=== PATIENT | female | born 1985 | race Caucasian/White ===

== ENCOUNTER 2025-04-18 00:25 | Emergency (ER) | payer BC, OTHER, SELFPAY ==
--- NOTE | ~2025-04-18 | CT_ITS ---
CT ABDOMEN AND PELVIS WITHOUT CONTRAST Clinical History: flank pain Comparison: None Technique: Unenhanced axial images lung bases to symphysis pubis Coronal, sagittal reformats CT images acquired with automatic exposure control for dose reduction DLP: 724 mGy-cm Findings: Without intravenous contrast, sensitivity for detecting visceral parenchymal abnormalities decreased. Lung bases: Clear. Visualized heart and pericardium: Unremarkable. Liver: Unremarkable. Gallbladder: Removed. Spleen: Unremarkable. Pancreas: Unremarkable. Adrenal glands: Unremarkable. Kidneys: Right kidney- hydronephrosis. A few stones, largest 8 mm. 8 mm stone proximal ureter. Left kidney- No hydronephrosis. A few stones, largest 5 mm. Distal esophagus/stomach: Unremarkable. Small bowel loops: Normal caliber and wall thickness. Colon: Normal caliber and wall thickness. Normal RLQ appendix. Nodes: No enlarged nodes. Peritoneum: No ascites. No free intraperitoneal air. Urinary bladder: Unremarkable. Uterus: Unremarkable. Adnexa: No masses. Bones: No acute bony abnormality. Soft tissues: Small umbilical hernia with fat. Unopacified abdominal aorta: No aneurysmal dilatation. IMPRESSION: 1. Right kidney hydronephrosis from 7 mm stone proximal ureter. 2. Bilateral nephrolithiasis. Reviewed, dictated and finalized at location R. [employer]
[2025-04-18 01:14] VITALS: BP 183/119; PULSE 67; RESP 19; TEMP 36.5; O2SAT 97
[2025-04-18 01:23] LABS: Hematocrit 43.4 % (37.0-47.0); Hemoglobin 14.9 g/dL (12.0-15.0); Immature Granulocyte Percent A 0.5 % (0-0.5); Lymphocytes Absolute Auto 1.31 K/mm3 (0.9-3.2); Mean Corpuscular HGB Conc 34.3 g/dl (32-36); Mean Corpuscular Hemoglobin 30.6 pg (26-34); Mean Corpuscular Volume 89.1 fl (80-100); Nucleated Red Blood Cells Absolute Auto 0.000 K/mm3 (0.0-0.012); Nucleated Red Blood Cells Perc 0.0 % (0.0-0.2); Platelet Count Result 303 k/mm3 (150-375); Red Blood Count 4.87 M/mm3 (4.2-5.4); White Blood Count 13.2 K/mm3 (4.5-10.0)
[2025-04-18 01:35] LABS: Alanine Aminotransferase 64 U/L (6-35); Albumin Level 4.4 g/dL (3.5-5.1); Alkaline Phosphatase 114 U/L (38-126); Anion Gap 7 mmol/L (4-12); Aspartate Amino Transferase 43 U/L (14-36); Bilirubin,Total 0.7 mg/dL (0.2-1.3); Blood Urea Nitrogen 18 mg/dL (7-17); Calcium 9.4 mg/dL (8.4-10.2); Carbon Dioxide 24 mmol/L (22-30); Chloride 105 mmol/L (98-107); Estimated CRCL calculation 76 ml/min; Estimated Glomerular Filt Rate > 60; Glucose 161 mg/dL (65-110); Lipase 46 U/L (23-300); Potassium 3.7 mmol/L (3.4-5.0); Sodium 136 mmol/L (137-145); Total Protein 7.6 g/dL (6.3-8.2)
[2025-04-18 01:51] LABS: Non Pathogenic Casts 0-2
[2025-04-18 02:44] LABS: Add Urine Microscopic? YES; Appearance Urine Cloudy (Clear); Glucose Urine UA Negative (Negative); Leukocyte Esterase Ur Trace LEU/UL (Negative); Nitrate Urine Negative (Negative); Specific Grav Ur 1.018 (1.001-1.035)
[2025-04-18 03:26] VITALS: BP 166/110; PULSE 65; PULSE 71; RESP 18; RESP 20; TEMP 36.8; O2SAT 96; O2SAT 98
--- NOTE | 2025-04-18 03:31 | PC.NURSE ---
ERP notified of patients pain and vomiting.
--- NOTE | 2025-04-18 03:43 | ED.GENADULT ---
HPI - General Adult General Chief complaint: Abdominal Pain Stated complaint: N/V and flank pain Time Seen by Provider: 04/18/25 03:32 Source: patient and family Mode of arrival: ambulatory Limitations: no limitations History of Present Illness HPI narrative: Patient is a 40-year-old female presents to the emergency department complaining of right flank pain, started last night around 7:00 p.m., constant, radiates around toward her groin, feels or history of kidney stones, started having nausea vomiting around 9:00 p.m., pain is constant. Related Data Allergies Allergy/AdvReac Type Severity Reaction Status Date / Time promethazine (From Phenergan) AdvReac Mild Shakiness Verified 04/18/25 03:29 Review of Systems Review of Systems: A 10 system review of systems was completed on the patient and is negative except for what is stated in the HPI. Nursing and ancillary documentation was reviewed. Exam Narrative: CONST: Moderate acute distress HENMT: Head is normocephalic and atraumatic. Moist mucous membranes. No posterior oropharynx erythema. EYES: No scleral icterus. No conjunctival injection or pallor. PERRL. NECK: No meningeal signs. RESP: Able to speak in full sentences. Normal respiratory effort. CTAB. CARDIO: Regular rate. Regular rhythm. 2+ DP and radial pulses bilaterally. GI: Nondistended. No tenderness to palpation. Soft. : Right CVA tenderness to palpation. SKIN: No rashes or lesions noted on exposed skin. NEURO: Oriented x3. Moves all extremities. EXTREM/MSK/BACK: No pedal edema. PSYCH: Normal affect. Course Vital Signs Vital signs: Vital Signs Temperature 97.7 F 04/18/25 01:14 Pulse Rate 67 04/18/25 01:14 Respiratory Rate 19 04/18/25 01:14 Blood Pressure 183/119 H 04/18/25 01:14 Pulse Oximetry 97 04/18/25 01:14 Temperature 98.2 F 04/18/25 03:26 Pulse Rate 61 04/18/25 06:36 Respiratory Rate 18 04/18/25 06:36 Blood Pressure 137/96 H 04/18/25 06:36 Pulse Oximetry 98 04/18/25 06:36 Oxygen Delivery Room Air 04/18/25 03:26 [facility] Narrative Medical decision making narrative: Patient presents with the above complaint. Initial vitals are remarkable for elevated blood pressure. Physical examination as noted above. Plan discussed: laboratory analysis, imaging. Patient ordered IVF, analgesia, antiemetic, continuous cardiac monitoring, continuous pulse oximetry. CT of the abdomen pelvis preliminary report radiology impression is 7 mm stone within the proximal right ureter. Moderate right-sided hydronephrosis and proximal hydroureter. No renal mass. No left renal obstruction or urolithiasis. Patient requested that I specifically talked with her Urology team at [facility] in [place]. I spoke with Urology from [facility] Dr. Mayes who notes to have the patient call the clinic on Saturday for a follow-up appointment, Flomax, pain medications, nausea medications, return precautions. Patient was reassessed at the bedside. Patient is in no acute distress. Patient is tolerating oral intake, pain is well controlled. Patient ordered Flomax. Patient for a discussion of her urologist and is satisfied with the plan of care at this time. The patient has remained stable throughout the entire ED visit. Counseled patient regarding diagnostic results and potential diagnosis. Anticipatory guidance provided. Patient instructed to follow up with Urology on Saturday. Patient counseled on: false reassurance from an emergency department evaluation; no current evidence of a medical emergency; return immediately for any new, recurrent, worsening, concerning, or refractory symptoms. Patient prescribed [place], Motrin, Zofran, Flomax. Prescription sent to preferred pharmacy. Medications discussed with patient. Additional verbal and printed discharge instructions were given and discussed with the patient. Patient verbally acknowledges understanding of condition and discharge instructions. All questions were answered to the patient's satisfaction. Patient is in agreement with the plan of care. The patient is stable for discharge and was discharged without incident. Differential Diagnosis Differential Diagnosis: Ureterolithiasis, UTI, metabolic derangement, electrolyte derangement, pancreatitis. Lab Data MDM Lab Attestation statement: I personally reviewed the patient's lab results. Lab results narrative: CBC reveals a white blood cell count of 13.2. Comprehensive metabolic panel reveals a sodium 136, BUN of 18, glucose 161, AST of 43, ALT of 64. Lipase is 46. Urinalysis has a cloudy appearance with 2+ protein, 1+ ketones, 3+ blood, trace leukocyte esterase, greater than 100 RBCs, no bacteria seen. test is negative. 04/18/25 01:18 04/18/25 01:18 Labs: Lab Results 04/18/25 04/18/25 Range/Units 01:18 01:35 WBC 13.2 H (4.5-10.0) K/mm3 RBC 4.87 (4.2-5.4) M/mm3 Hgb 14.9 (12.0-15.0) g/dL Hct 43.4 (37.0-47.0) % MCV 89.1 (80-100) fl MCH 30.6 (26-34) pg MCHC 34.3 (32-36) g/dl RDW 12.9 (11.5-14.5) % Plt Count 303 (150-375) k/mm3 MPV 9.1 (7.4-10.4) fl Immature Gran % (Auto) 0.5 (0-0.5) % Neut % (Auto) 85.2 H (45.5-73.1) % Lymph % (Auto) 9.9 L (18.3-44.2) % [place] % (Auto) 3.7 (2.6-8.5) % Eos % (Auto) 0.2 (0-4.4) % Baso % (Auto) 0.5 (0.2-1.2) % Lymph # (Auto) 1.31 (0.9-3.2) K/mm3 [place] # (Auto) 0.5 (0.1-0.6) K/mm3 Eos # (Auto) 0.0 (0-0.3) K/mm3 Baso # (Auto) 0.1 (0.0-0.1) K/mm3 Abs Immat Gran (auto) 0.06 H (0.00-0.031) K/mm3 Absolute Neuts (auto) 11.3 H (1.3-6.7) K/mm3 Absolute Nucleated RBC 0.000 (0.0-0.012) K/mm3 Nucleated RBC % 0.0 (0.0-0.2) % Sodium 136 L (137-145) mmol/L Potassium 3.7 (3.4-5.0) mmol/L Chloride 105 (98-107) mmol/L Carbon Dioxide 24 (22-30) mmol/L Anion Gap 7 (4-12) mmol/L BUN 18 H (7-17) mg/dL Creatinine 0.98 (0.7-1.0) mg/dL Estim Creat Clear Calc 76 ml/min Estimated GFR > 60 (59 - ) Glucose 161 H (65-110) mg/dL Calcium 9.4 (8.4-10.2) mg/dL Total Bilirubin 0.7 (0.2-1.3) mg/dL AST 43 H (14-36) U/L ALT 64 H (6-35) U/L Alkaline Phosphatase 114 (38-126) U/L Total Protein 7.6 (6.3-8.2) g/dL Albumin 4.4 (3.5-5.1) g/dL Lipase 46 (23-300) U/L Urine Color Dark yellow (Yellow) Urine Appearance Cloudy H (Clear) Urine pH 7.0 (5.0-9.0) Ur Specific [place] 1.018 (1.001-1.035) Urine Protein 2+ H (Negative) mg/dL Urine Glucose (UA) Negative (Negative) mg/dL Urine Ketones 1+ H (Negative) mg/dL Ur Blood (Man) 3+ H (Negative) Urine Nitrate Negative (Negative) Urine Bilirubin Negative (Negative) Urine Urobilinogen 0.2 (<2.0) mg/dL Leukocyte Esterase Rfl Trace H (Negative) FREDDY/UL Urine RBC >100 H (0-2) /hpf Urine WBC 0-5 (0-3) /hpf Ur Squamous Epith Cells None seen (Few) /hpf Urine Bacteria None seen /hpf Urine Casts 0-2 Urine Test Negative Discharge Plan Discharge Clinical Impression: Ureterolithiasis Patient Disposition: Home Condition: Stable Instructions: Antibiotic Form, How to Strain Your Urine (ED), Ureteral Stones (ED) Additional Instructions: Take the pain medications as prescribed as needed, nausea medications as needed, Flomax as prescribed. Strain all urine. Stay well hydrated. Follow-up with your urologist on Saturday. Return immediately to the emergency department for any new or concerning symptoms especially inability to control your pain despite medications, inability keep anything down by mouth, fever, or any emergent concerns for life, limb, eyesight. Patient Language: Tajik Prescriptions: New ondansetron 4 mg tablet,disintegrating 4 mg PO Q8H PRN (Reason: nausea and vomiting) Qty: 14 0RF tamsulosin 0.4 mg capsule 0.4 mg PO DAILY Qty: 30 0RF hydrocodone-acetaminophen 7.5-325 mg tablet 1 tablet PO Q6H MDD 4 tabs PRN (Reason: pain) 3 Days Qty: 12 0RF ibuprofen 400 mg tablet 400 mg PO Q6H PRN (Reason: pain) Qty: 30 0RF Follow-up/Referrals: PHYSICIAN NOT ON STAFF,NONSTAFF [Primary Care Provider] Time of Disposition: 06:13
[2025-04-18] MEDS: SODIUM CHLORIDE 0.9% IV 1,000 ML 999 ML IV CONT (03:54)
[2025-04-18] MEDS: ONDANSETRON INJ 4 MG/2 ML VIAL IV PUSH (03:55)
[2025-04-18 03:56] VITALS: BP 159/91; PULSE 62; RESP 18; O2SAT 97
[2025-04-18] MEDS: KETOROLAC 15 MG/ML VIAL (*BKC) IV PUSH (03:56)
[2025-04-18] MEDS: HYDROmorphone HCL INJ (*CRX) 1 MG/ML SYR IV PUSH (03:58)
[2025-04-18 04:02] LABS: Pregnancy On Board Control Positive
[2025-04-18 04:53] VITALS: BP 162/99; PULSE 63; RESP 18; O2SAT 98
[2025-04-18 06:14] VITALS: BP 137/96; PULSE 65; RESP 19; O2SAT 93
[2025-04-18] MEDS: TAMSULOSIN HCL 0.4 MG CAPSULE PO (06:22)
--- NOTE | 2025-04-18 06:25 | PC.NURSE ---
Patient requesting pain medication before she leaves, rates pain 6/10. ERP notified, VORB to give 1 norco 5-325mg tab. Orders placed.
[2025-04-18] MEDS: HYDROcodone/acetaminophen (*CRX) 5-325 MG TABLET 1 TAB PO (06:30)
[2025-04-18 06:36] VITALS: BP 137/96; PULSE 61; RESP 18; O2SAT 98
== END 2025-04-18 06:37 | disposition home or self-care (01) ==
PROVIDERS: Emergency Provider Student in an Organized Health Care Education/Training Program
DX: N20.1 Calculus of ureter (principal)
CPT/HCPCS: 36415; 74176; 80053; 81001; 81025; 83690; 85025; 96361; 96374; 96375; 99284; A9270; J1171; J1885; J2405; J7030